=== PATIENT | male | born 1985 | race Caucasian/White ===

== ENCOUNTER 2018-02-01 11:31 | Emergency (ER) | payer OTHER ==
[2018-02-01 11:37] VITALS: O2SAT 100
--- NOTE | 2018-02-01 13:05 | C.PDOC ---
History Of Present Illness 32 y/o male presents to the ED with laceration of left finger. States he accidentally cut himself while using a snuff box finisher. Sustained laceration to left hand at 3rd digit over the metacarpal dorsal aspect. Tetanus is up to date. Time Seen by Provider: 02/01/18 12:16 Chief Complaint (Nursing): Abnormal Skin Integrity History Per: Patient History/Exam Limitations: no limitations Onset/Duration Of Symptoms: Hrs Current Symptoms Are (Timing): Still Present Past Medical History Reviewed: Historical Data, Nursing Documentation, Vital Signs Vital Signs: Last Vital Signs Temp 98.1 F 02/01/18 13:10 Pulse 84 02/01/18 13:10 Resp 18 02/01/18 13:10 BP 138/82 02/01/18 13:10 Pulse Ox 100 02/01/18 13:10 - Medical History PMH: No Chronic Diseases Surgical History: Tonsillectomy Family History: States: No Known Family Hx - Social History Hx Alcohol Use: No Hx Substance Use: No - Immunization History Hx Tetanus Toxoid Vaccination: Yes (2016) Hx Influenza Vaccination: Yes (06/2017) Hx Pneumococcal Vaccination: No Review Of Systems Except As Marked, All Systems Reviewed And Found Negative. Skin: Positive for: Lesions (to left 3rd digit) Neurological: Negative for: Weakness, Numbness Physical Exam - Physical Exam Appears: Non-toxic, No Acute Distress Skin: Normal Color, Warm, Dry Extremity: Normal ROM, No Deformity, Other (4 cm laceration over the 3rd digit, extensor tendon intact, FDP and FDS are intact) Pulses: Left Radial: Normal, Right Radial: Normal Neurological/Psych: Oriented x3 ED Course And Treatment O2 Sat by Pulse Oximetry: 100 (RA) Pulse Ox Interpretation: Normal Laceration - Laceration Repair left hand laceration repair Wound Length (In cm): 4 Description Of Wound: Linear Wound Cleansed With: Sterile Saline Anesthesia: Lidocaine 2% (3 ml) Wound Examination: Irrigated With Saline Wound Closure: Suture (x4) Suture Technique And Material Used: Nylon (4:0) Wound Complexity: Simple Medical Decision Making Medical Decision Making: Impression: Laceration Initial Plan: --Laceration repaired using 2% lidocaine Patient tolerated procedure well. Bacitracin applied with sterile wound dressing. Advised to follow up in 2 days for wound check and suture removal in 12-14 days. Disposition Counseled Patient/Family Regarding: Diagnosis, Need For Followup - Disposition Disposition: HOME/ ROUTINE Disposition Time: 13:04 Condition: IMPROVED Additional Instructions: follow up with your doctor in 2 days wound check in 2 days call to make an appointment continue your home medications return to ER if symptoms worsens or progress apply bactracin twice daily suture removal in 12-14 days Instructions: Laceration Repair Forms: [facility] (K[place]akh), General Discharge Instructions - Clinical Impression Clinical Impression: Laceration - Scribe Statement The provider has reviewed the documentation as recorded by the Scribe (Lauryn Mo) Provider Attestation: All medical record entries made by the Scribe were at my direction and personally dictated by me. I have reviewed the chart and agree that the record accurately reflects my personal performance of the history, physical exam, medical decision making, and the department course for this patient. I have also personally directed, reviewed, and agree with the discharge instructions and disposition.
[2018-02-01 13:11] VITALS: BP 138/82; PULSE 84; RESP 18; TEMP 98.1
== END 2018-02-01 13:11 | disposition home or self-care (01) ==
LOC: C.ER 11:31
DX: S61.412A Laceration without foreign body of left hand, initial encounter (principal); W45.8XXA Other foreign body or object entering through skin, initial encounter